=== PATIENT | male | born 1990 | race Caucasian/White ===

== ENCOUNTER 2016-06-16 11:15 | Emergency (ER) | payer OTHER ==
[~2016-06-16] VITALS: Ht 177.8 cm; Wt 81.6 kg
[2016-06-16 12:00] VITALS: BP 152/88
--- NOTE | 2016-06-16 12:08 | NUR ---
Patient ambulated to bed 06.
--- NOTE | 2016-06-16 12:16 | NUR ---
PATIENT PRESENTS TO ED FOR EVALUATION OF RIGHT SIDED FACIAL DROOP X1 DAY AND UN. DENIES N/V/D; SKIN IS PINK/WARM/DRY; AAOX4 WITH EVEN AND STEADY GAIT; LUNGS CLEAR BL; HR EVEN AND REGULAR; PT DENIES ANY FEVER, CP, SOB, OR COUGH AT THIS TIME; PATIENT STATES PAIN OF 7/10 AT THIS TIME ON RIGHT FACE; PATIENT POSITIONED FOR COMFORT; HOB ELEVATED; BEDRAILS UP X2; BED DOWN. ER MD MADE AWARE OF PT STATUS.
--- NOTE | 2016-06-16 12:19 | NUR ---
DR. PEARCE AT BEDSIDE
--- NOTE | 2016-06-16 13:04 | NUR ---
Patient discharged with v/s stable. Written and verbal after care instructions given and explained. Patient alert, oriented and verbalized understanding of instructions. Ambulatory with steady gait. All questions addressed prior to discharge. ID band removed. Patient advised to follow up with PMD. Rx of MOTRIN,ACYCLOVIR,PREDNISONE AND ARTIFICIAL TEARS given. Patient educated on indication of medication including possible reaction and side effects. Opportunity to ask questions provided and answered.
[2016-06-16 13:05] VITALS: BP 130/80
== END 2016-06-16 13:04 | disposition home or self-care (01) ==
LOC: EDBD 11:30 → MED 11:30
DX: G51.0 Bell's palsy (principal); R03.0 Elevated blood-pressure reading, without diagnosis of hypertension